=== PATIENT | female | born 1960 | race Caucasian/White ===

== ENCOUNTER 2016-07-24 04:47 | Emergency (ER) | payer BC ==
[~2016-07-24] VITALS: Ht 172.7 cm; Wt 109.1 kg
[~2016-07-24 04:47] MED LIST: MISCCAP80 PO; MULT-506 PO; ONDA4TAB10 SL; PRIMROSE PO; [UNRECOGNIZED DRUG - CODE] PO
[2016-07-24 04:50] VITALS: TEMP 36.8; Ht 172.7 cm; Wt 109.1 kg
[2016-07-24] MEDS ORDERED: MoRPHine SULFATE 4 MG/ML 1 ML CARP\\VIAL IV STA ×2 (05:08→06:11)
[2016-07-24] MEDS ORDERED: SODIUM CHLORIDE 0.9% 1000ML 1,000 ML IV STA ×2 (05:08)
[2016-07-24] MEDS ORDERED: ONDANSETRON INJ 2 MG/ML 2 ML VIAL IV STA (05:08)
--- NOTE | 2016-07-24 05:10 | EMERGENCY ROOM VISIT NOTE ---
History Report prepared by Terrance: Lisebth Padron Under the Supervision of: Dr. Yeny Borrero D.O. First contact with patient: 04:51 Chief Complaint: ABDOMINAL PAIN Stated Complaint: STOMACH UPPER & BETWEEN SHOULDER BLADES History of Present Illness The patient is a 56 year old female who presents to the Emergency Room with complaints of severe epigastric abdominal pain starting about 4 hours ago. She reports pain radiation to the back and to her throat. She describes it to be a burning pain. She reports a history of similar pain occurring last year with gastritis. She is no longer on Protonix. She reports nausea but denies vomiting. She also complains of diarrhea. She ate pizza for dinner last night. The patient denies any alcohol use. The patient denies chest pain, shortness of breath, or any other complaints. Source of History: patient Onset: about 4 hours ago Position: abdomen (epigastric) Symptom Intensity: severe Quality: burning Associated Symptoms: + diarrhea, + nausea, No SOB, No chest pain, No vomiting Review of Systems See HPI for pertinent positives & negatives. A total of 10 systems reviewed and were otherwise negative. Past Medical & Surgical Medical Problems: (1) Gastritis (2) Gastritis (3) URI Family History Patient reports no known family medical history. Social History Smoking Status: Former Smoker Alcohol Use: occasionally Drug Use: none Marital Status: single Housing Status: lives with family Current/Historical Medications Scheduled Multivitamin (Multivitamin), 1 TAB PO DAILY Pantoprazole (Protonix), 40 MG PO DAILY Probiotic Product (Probiotic), 1 CAP PO QPM [[place]], 1 DOSE PO DAILY [women in balance], Unknown Dose PO DAILY Scheduled PRN Hydroxyzine Hcl (Atarax), 25 MG PO DIRECTED PRN for Anxiety/Agitation Allergies Coded Allergies: Penicillins (Verified Allergy, Unknown, RASH, 07/24/16) Sulfa Drugs (Verified Allergy, Unknown, RASH, 07/24/16) Physical Exam Vital Signs Date Time Temp Pulse Resp B/P Pulse Ox O2 Delivery O2 Flow Rate FiO2 07/24/16 06:07 56 16 131/67 97 Room Air 07/24/16 05:19 94 Room Air 07/24/16 05:19 95 Room Air 07/24/16 05:04 57 07/24/16 04:50 36.8 60 16 164/91 100 Room Air Physical Exam HEENT: Head - normocephalic and atraumatic Pupils are equal, round, and reactive to light. Extraocular eye muscles are intact, and sclera are anicteric. Nose - moist nasal mucosa without discharge. Mouth - moist buccal mucosa. Oropharynx is nonerythematous and there is no tonsillar exudate or edema noted. Neck: Supple; no JVD, nuchal rigidity, cervical lymphadenopathy. Heart: Regular rate and rhythm. There is a normal S1 and S2 with no murmurs, clicks, or gallops appreciated. Lungs: Clear to auscultation bilaterally with no wheezes, rales, or rhonchi. Abdomen: Soft, epigastric abdominal tenderness to palpation, nondistended, with good bowel sounds. There are no palpable pulsatile masses or hepatosplenomegaly. There is no guarding, rigidity, or rebound noted. Extremities: No evidence of cyanosis, clubbing, or edema. There are easily palpable peripheral pulses. Skin: warm and dry with good turgor and no rashes. Medical Decision & Procedures ER Provider Diagnostic Interpretation: X-ray results as stated below per interpretation by me: CHEST X-RAY No free air, no cardiomegaly, no obvious pulmonary pathology. Laboratory Results 07/24/16 05:00 Red Blood Count 4.96, Mean Corpuscular Volume 88.3, Mean Corpuscular Hemoglobin 29.8, Mean Corpuscular Hemoglobin Concent 33.8, Mean Platelet Volume 10.4, Neutrophils (%) (Auto) 72.1, Lymphocytes (%) (Auto) 20.2, Monocytes (%) (Auto) 5.2, Eosinophils (%) (Auto) 2.1, Basophils (%) (Auto) 0.3, Neutrophils # (Auto) 7.74, Lymphocytes # (Auto) 2.17, Monocytes # (Auto) 0.56, Eosinophils # (Auto) 0.22, Basophils # (Auto) 0.03 07/24/16 05:00 Test 07/24/16 05:00 07/24/16 05:18 White Blood Count 10.73 K/uL (4.8-10.8) Red Blood Count 4.96 M/uL (4.2-5.4) Hemoglobin 14.8 g/dL (12.0-16.0) Hematocrit 43.8 % (37-47) Mean Corpuscular Volume 88.3 fL (80-100) Mean Corpuscular Hemoglobin 29.8 pg (25-34) Mean Corpuscular Hemoglobin Concent 33.8 g/dl (32-36) Platelet Count 296 K/uL (130-400) Mean Platelet Volume 10.4 fL (7.4-10.4) Neutrophils (%) (Auto) 72.1 % Lymphocytes (%) (Auto) 20.2 % Monocytes (%) (Auto) 5.2 % Eosinophils (%) (Auto) 2.1 % Basophils (%) (Auto) 0.3 % Neutrophils # (Auto) 7.74 K/uL (1.4-6.5) Lymphocytes # (Auto) 2.17 K/uL (1.2-3.4) Monocytes # (Auto) 0.56 K/uL (0.11-0.59) Eosinophils # (Auto) 0.22 K/uL (0-0.5) Basophils # (Auto) 0.03 K/uL (0-0.2) RDW Standard Deviation 43.4 fL (36.4-46.3) RDW Coefficient of Variation 13.4 % (11.5-14.5) Immature Granulocyte % (Auto) 0.1 % Immature Granulocyte # (Auto) 0.01 K/uL (0.00-0.02) Anion Gap 8.0 mmol/L (3-11) Est Creatinine Clear Calc Drug Dose 104.0 ml/min Estimated GFR () 96.9 Estimated GFR (Non- 83.6 BUN/Creatinine Ratio 15.4 (10-20) Calcium Level 8.8 mg/dl (8.5-10.1) Total Bilirubin 0.4 mg/dl (0.2-1) Direct Bilirubin < 0.1 mg/dl (0-0.2) Aspartate Amino Transf (AST/SGOT) 19 U/L (15-37) Alanine Aminotransferase (ALT/SGPT) 35 U/L (12-78) Alkaline Phosphatase 87 U/L (45-117) Troponin I < 0.015 ng/ml (0-0.045) Total Protein 7.5 gm/dl (6.4-8.2) Albumin 3.7 gm/dl (3.4-5.0) Lipase 115 U/L (73-393) Bedside Troponin I 0.000 ng/ml (0-0.045) Laboratory results per my review. Medications Administered Medications (Trade) Dose Ordered Sig/Mickey Route Start Time Stop Time Status Last Admin Dose Admin Morphine Sulfate (MoRPHine SULFATE INJ) 4 mg NOW STAT IV 07/24/16 05:08 07/24/16 05:11 DC 07/24/16 05:22 4 MG Ondansetron HCl 4 mg 4 mg NOW STAT IV 07/24/16 05:08 07/24/16 05:11 DC 07/24/16 05:22 4 MG Sodium Chloride 1,000 ml @ 999 mls/hr Q1H1M STAT IV 07/24/16 05:08 07/24/16 06:08 DC 07/24/16 05:26 999 MLS/HR Sodium Chloride (Nss 1000ml) 1,000 ml @ 125 mls/hr Q8H STAT IV 07/24/16 05:08 07/24/16 13:07 07/24/16 05:08 125 MLS/HR Ranitidine HCl (zANTac IV) 50 mg NOW STAT IV 07/24/16 05:11 07/24/16 05:14 DC 07/24/16 05:22 50 MG Lidocaine HCl (Viscous Lidocaine 2% Soln) 10 ml NOW STAT PO 07/24/16 06:10 07/24/16 06:11 DC 07/24/16 06:16 10 ML Al Hydroxide/Mg Hydroxide (Maalox Susp) 30 ml NOW STAT PO 07/24/16 06:10 07/24/16 06:11 DC 07/24/16 06:16 30 ML Morphine Sulfate (MoRPHine SULFATE INJ) 4 mg NOW STAT IV 07/24/16 06:11 07/24/16 06:12 DC 07/24/16 06:17 4 MG Procedure Sodium Chloride 1000 ml @ 125 mls/hr IV, Sodium Chloride 1000 ml @ 999 mls/hr IV , Zofran Inj 4 mg IV, Morphine Sulfate 4 mg IV, Ranitidine HCl 50 mg IV, Maalox Susp 30 ml PO, Lidocaine HCl 10 ml PO Morphine - 4mg IV zofran homepack ECG Indication: abdominal pain Rate (beats per minute): 59 Rhythm: sinus bradycardia Findings: no acute ischemic change, no ectopy Comparison ECG Date: January 22, 2016 Change: no significant change ED Course 0451: Past medical records reviewed. The patient was evaluated in room B09. A complete history and physical exam was performed. An IV lock was initiated and labs were drawn as above. 0508: Sodium Chloride 1000 ml @ 125 mls/hr IV, Sodium Chloride 1000 ml @ 999 mls /hr IV, Zofran Inj 4 mg IV, Morphine Sulfate 4 mg IV 0511: Ranitidine HCl 50 mg IV. The patient had a portable chest x-ray which showed no evidence of free air. 0548: I reevaluated the patient. She feels much better after receiving the medications. 0608: I reevaluated the patient. She is starting to have pain again. 0610: Maalox Susp 30 ml PO, Lidocaine HCl 10 ml PO 0611: Morphine Sulfate 4 mg IV 0635: I reevaluated the patient who feels much better. She will try to drink some water. 0659: Upon reevaluation, the patient is resting comfortably. She was easily able to drink water. I discussed findings and results with her. She verbalized agreement of the treatment plan. She was discharged home. The patient had some nausea prior to discharge and was given a Zofran home pack. Medical Decision This is a 56 year old patient who presents to the Emergency Room with complaints of epigastric abdominal pain. Differential diagnosis includes but is not limited to pancreatitis, gastritis, ulcerative disease, esophagitis, GERD , cardiac ischemia, and aortic dissection. Her labs showed no leucocytes, stable H &H, troponin is 0, normal lipase and LFTs, glucose of 118, normal renal function. The patient explains that she had the exact same thing happen last year where she was diagnosed with gastritis and was placed on Protonix. The patient stopped taking that medication approximately one month after it was prescribed. The patient did have pizza last night and woke up around 1 AM with epigastric pain, nausea and burning in her throat. She received IV Zantac, IV morphine and Zofran here in the emergency department with significant relief of her symptoms. I've asked the patient to take a bland diet and plenty of clear liquids by mouth. I've written the patient a prescription for proton excuse daily over the next month. I suggested that she follow up later today with her PCP, especially if the pain persists. I've given her a note for work. Impression Primary Impression: GERD (gastroesophageal reflux disease) Additional Impression: Epigastric pain Scribe Attestation The scribe's documentation has been prepared under my direction and personally reviewed by me in its entirety. I confirm that the note above accurately reflects all work, treatment, procedures, and medical decision making performed by me. Departure Information Dispostion Home / Self-Care Prescriptions Pantoprazole (Protonix) 40 Mg Tab 40 MG PO DAILY, #30 TAB Prov: Yeny Borrero D.O. 07/24/16 Referrals No Doctor, Assigned (PCP) Forms Call Back Authorization, HOME CARE DOCUMENTATION FORM, IMPORTANT VISIT INFORMATION Patient Instructions ED Epigastric Pain [facility], ED GERD, My [facility] Additional Instructions Rest. Take protonix daily. Take a very bland diet and plenty of clear liquids Problem Qualifiers Primary Impression: GERD (gastroesophageal reflux disease) Esophagitis presence: with esophagitis Qualified Codes: K21.0 - Gastro- esophageal reflux disease with esophagitis
[2016-07-24] MEDS ORDERED: RANITIDINE HCL 50 MG/100 ML D5W IV STA (05:11)
[2016-07-24] MEDS ORDERED: OPTIRAY 320 IV PRN (05:15)
[2016-07-24 05:19] VITALS: O2SAT 95
[2016-07-24] MEDS ORDERED: HYDR-3124 PO (05:20)
[2016-07-24] MEDS ORDERED: [UNRECOGNIZED DRUG - OTHER] PO (05:20)
[2016-07-24 05:24] LABS: BASO % 0.3 %; BASO ABS # 0.03 K/uL (0-0.2); COMPLETE YES; EOS % 2.1 %; HEMATOCRIT 43.8 % (37-47); IG% 0.1 %; LYMPH % 20.2 %; LYMPH ABS # 2.17 K/uL (1.2-3.4); MEAN CELL VOLUME 88.3 fL (80-100); MEAN CORPUSCULAR HEMOGLOBIN 29.8 pg (25-34); MEAN CORPUSCULAR HGB CONC 33.8 g/dl (32-36); MEAN PLATELET VOLUME 10.4 fL (7.4-10.4); MONO % 5.2 %; NEUT % 72.1 %; PLATELET COUNT 296 K/uL (130-400); RED BLOOD COUNT 4.96 M/uL (4.2-5.4); WHITE BLOOD COUNT 10.73 K/uL (4.8-10.8)
[2016-07-24 05:50] LABS: ALT/SGPT 35 U/L (12-78); AST/SGOT 19 U/L (15-37); BLOOD UREA NITROGEN 12 mg/dl (7-18); BUN/CREATININE RATIO 15.4 (10-20); CALCIUM 8.8 mg/dl (8.5-10.1); CARBON DIOXIDE 28 mmol/L (21-32); CHLORIDE 105 mmol/L (98-107); GLUCOSE 118 mg/dl (70-99); POTASSIUM 3.8 mmol/L (3.5-5.1); SODIUM 141 mmol/L (136-145)
[2016-07-24 05:54] LABS: ALKALINE PHOSPHATASE 87 U/L (45-117)
[2016-07-24] MEDS ORDERED: ALUMINUM/MAGNESIUM SUSP 30 ML UDC PO STA (06:10)
[2016-07-24] MEDS ORDERED: LIDOCAINE HCL 2% VISC SOLN 20 ML UDC PO STA (06:10)
[2016-07-24] MEDS ORDERED: PANT40TA PO (06:55)
[2016-07-24 07:15] VITALS: BP 152/71; PULSE 57; O2SAT 98
[2016-07-24] MEDS ORDERED: ONDANSETRON HOME PACK 4MG OD TAB PO ONE (07:15)
--- NOTE | 2016-07-24 08:50 | DIAGNOSTIC IMAGING REPORT ---
CHEST ONE VIEW PORTABLE CLINICAL HISTORY: CHEST PAIN dyspnea COMPARISON STUDY: 01/22/2016 FINDINGS: The bones soft tissues and hemidiaphragms are normal. The cardiomediastinal silhouette is normal. The lungs are clear. The pulmonary vasculature is normal. IMPRESSION: Negative chest. Electronically signed by: Johann Coffey M.D. 07/24/2016 8:49 AM Dictated Date/Time: 07/24/2016 8:49 AM
== END 2016-07-24 07:40 | disposition home or self-care (01) ==
LOC: C.EDB 04:48
DX: K21.0 Gastro-esophageal reflux disease with esophagitis (principal); R10.13 Epigastric pain; Z87.891 Personal history of nicotine dependence